=== PATIENT | female | born 1975 | race Caucasian/White ===

== ENCOUNTER 2019-01-29 14:48 | Emergency (ER) | payer MEDICAID ==
[2019-01-29] MEDS ORDERED: LIDOCAINE 1% (MDV) 10 ML INJ INJ (15:43)
[2019-01-29] MEDS: LIDOCAINE 1% (MPF) 5 ML VIAL INFIL (15:54)
[2019-01-29] MEDS: DIPHTH/TET/ACEL PERTUSS (ADULT) 0.5 ML VIAL IM* (16:07)
[2019-01-29] MEDS ORDERED: KETOROLAC 30 MG INJ IM (16:08)
[2019-01-29] MEDS: ACETAMINOPHEN 500 MG TAB PO (16:50)
== END 2019-01-29 17:20 | disposition home or self-care (01) ==
LOC: FTE 14:48
DX: S61.011A Laceration without foreign body of right thumb without damage to nail, initial encounter (principal); W26.0XXA Contact with knife, initial encounter; Y92.9 Unspecified place or not applicable; Z23 Encounter for immunization
CPT/HCPCS: 12002; 73130-RT; 90471; 90715; 99283-25

== ENCOUNTER 2019-01-31 11:24 | Emergency (ER) | payer MEDICAID | END 2019-01-31 13:25 | disposition home or self-care (01) | LOC: FTE 13:25 | DX: Z48.01 Encounter for change or removal of surgical wound dressing (principal) | CPT/HCPCS: 29130; 99282-25 ==